=== PATIENT | female | born 1995 | race Two or more races ===

== ENCOUNTER 2016-12-06 21:13 | Emergency (ER) | payer OTHER ==
[2016-12-06] MEDS ORDERED: XANAX0.25 M1 (21:31)
== END 2016-12-06 22:19 ==
LOC: EDMED 21:13
DX: F41.0 Panic disorder [episodic paroxysmal anxiety] (principal); G44.209 Tension-type headache, unspecified, not intractable; F41.9 Anxiety disorder, unspecified